=== PATIENT | female | born 1990 | race Caucasian/White ===

== ENCOUNTER 2018-03-22 19:28 | Emergency (ER) | payer OTHER ==
[~2018-03-22] VITALS: Ht 167.6 cm; Wt 45.4 kg
[~2018-03-22 19:28] MED LIST: BIRTH CONTROLL; CIPROFLOXACIN500 M1 PO; HYDROCODONE-AP1 EAC6 PO; MEDROLDOSEPACK PO; NORCO 5-325 TA1 EACH PO
[2018-03-22] MEDS ORDERED: ROBAXIN500 MG PO (19:41)
[2018-03-22 19:49] VITALS: BP 137/68
== END 2018-03-22 19:50 | disposition home or self-care (01) ==
LOC: M.ERS 19:28
DX: S46.811A Strain of other muscles, fascia and tendons at shoulder and upper arm level, right arm, initial encounter (principal); F17.210 Nicotine dependence, cigarettes, uncomplicated; X58.XXXA Exposure to other specified factors, initial encounter; Y93.89 Activity, other specified; Y92.89 Other specified places as the place of occurrence of the external cause; Y99.8 Other external cause status